=== PATIENT | female | born 1990 | race Caucasian/White ===

== ENCOUNTER → 2017-06-28 19:25 | Observation (INO) ==
--- NOTE | 2017-06-28 17:49 | Discharge Summary ---
Date of Encounter: 06/28/17 Time of Encounter: 17:49 - Discharge Diagnosis (1) Vaginal discharge during Priority: Primary Status: Acute Comments: Edit: NST reactive, Vaginosis panel BV Sent home with metrogel. Follow up in office with routine care and PRN. Discharge home with labor precautions. Ms Stein at 34 w 4 d arrives to triage with c/o leakage onto her underwear after urinating this evening. She denies cramping, contractions, vaginal bleeding, change in discharge, intercourse in the past 48 hours, headaches, vision changes, and epigastric pain. She states positive movement. She delivered her last child at 37 w 4 days with spontaneous labor. Pooling negative and Nitrazine negative Urine pending NST pending Vaginosis panel pending Anticipate discharge home with labor precautions. Follow up in office with routine care and PRN Qualifiers: Trimester: third trimester Qualified Code(s): O26.893 - Other specified related conditions, third trimester; N89.8 - Other specified noninflammatory disorders of vagina (2) 34 weeks gestation of Priority: Secondary Status: Acute - Discharge Medications Prescriptions: MetroNIDAZOLE [Metrogel-Vaginal] 5 gm VG HS 5 Days gel.w.appl Home Medications: Aspirin [Lo-Dose Aspirin EC] 81 mg PO DAILY 06/28/17 [History] MetroNIDAZOLE [Metrogel-Vaginal] 5 gm VG HS 5 Days gel.w.appl 06/28/17 [Rx] Pnv Plus Multivit Tab 06/28/17 [History] Progesterone,Micronized [Progesterone] 200 mg PO DAILY 06/28/17 [History] Allergies/Adverse Reactions: 3 Allergy/AdvReac Type Severity Reaction Status Date / Time No Known Allergies Allergy Verified 07/08/16 17:54 Date of admission: 06/28/17 17:19 Primary care physician: PCP NONE Discharging clinician: Meera Yusuf Anticipated date of discharge: 06/28/17 - Patient Status Disposition: Home, Self-Care Condition: Good Functional capacity at discharge: independent ambulation Overall status at discharge: patient is back to baseline - Discharge Instructions Follow Up With: NONE,PCP [Primary Care Provider] - Douglas Souza MD [Partnered Physician] - Additional Instructions: LABOR AND DELIVERY DISCHARGE INSTRUCTIONS Signs and Symptoms to be Reported to your Doctor Immediately: * Sudden gush, continuous or intermittent lead of fluid from vagina (note the time of gush and color of fluid) * Onset of bright red vaginal bleeding with or without pain (if you had a vaginal exam during this visit you may notice some dark red spotting. This is normal.) * Lower abdominal cramping or backache that is premenstrual-like feeling. * More than 6 contractions in one hour. * Burning during urination, having to urinate more frequently or pain in your mid-back. * A change in the baby's activity. This could be an increase or decrease in activity. * Severe headache which does not go away with tylenol. * Sudden swelling in the face, hands, arms and/or legs. * Upper abdominal pain - sometimes associated with heartburn or nausea and is not relieved by Maalox, Mylanta or Tums. * Dizziness or blurred vision or visual disturbances (seeing stars/lights). * Kick Counts One hour after a meal, lay down on one side in a quiet place. Count the number of keith the baby moves during an hour. If less than 6 movements, notify your physician. Diet: *Force fluids - 8-10 tall glasses of fluid per day. May include popsicles and jello. 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 SSE - mild white mucous discharge SVE - FT thick high anterior - Extremities Exam Extremities exam IM: Present: normal capillary refill, normal inspection, radial pulses palpable and symmetrical - Neurological Exam Neurological exam: alert, oriented X3 - VTE Reasons for not Prescribing Prophylaxis: Treatment not Indicated - Low risk for VTE
[2017-06-28 18:01] LABS: Bilirubin,Urine Negative (Negative); Blood,Urine Small (Negative); Clarity,Urine Cloudy (Clear); Color,Urine Yellow (Yellow); Glucose,Urine (UA) Normal (Normal); Ketones,Urine Negative (Negative); Leukocyte Esterase,Urine Small (Negative); Nitrite,Urine Negative (Negative); PH,Urine 6.5 pH Units (5.0-8.0); Protein,Urine Negative (Neg-Trace); Specific Gravity,Urine 1.018 (1.010-1.025); Urobilinogen,Urine Normal (Normal)
[2017-06-28 18:03] LABS: Bacteria,Urine None Seen per hpf (None-Few); Hyaline Casts,Urine None Seen per lpf (None-Few); RBC,Urine 0-3 per hpf (0-3); Squamous Epithelial Cell,Urine Many per lpf (None-Few)
[2017-06-28 18:06] LABS: Amphetamine Screen,Urine Negative ng/mL (Cutoff=1000); Barbiturate Screen,Urine Negative ng/mL (Cutoff=200); Benzodiazepines Screen,Urine Negative ng/mL (Cutoff=200); Cannabinoid Screen,Urine Negative ng/mL (Cutoff = 50); Cocaine Screen,Urine Negative ng/mL (Cutoff= 300); Opiate Screen,Urine Negative ng/mL (Cutoff=300); Phencyclidine Screen,Urine Negative ng/mL (Cutoff=25)
[2017-06-28 18:13] LABS: Amorphous Sediment,Urine Few (Few)
[2017-06-28 18:48] LABS: Candida DNA Not Detected (Not Detect); Gardnerella DNA ***DETECTED*** (Not Detect); Trichomonas DNA Not Detected (Not Detect)
== END | disposition home or self-care (01) ==
LOC: 1NENULAB
PROVIDERS: ADMIT Obstetrics & Gynecology; ATTEND Obstetrics & Gynecology

== ENCOUNTER → 2017-07-18 13:05 | Observation (INO) ==
[2017-07-18 11:12] LABS: Basophils # 0.1 K/mcL (0.0-0.2); Basophils % 0.6 %; Eosinophils # 0.2 K/mcL (0.0-0.6); Eosinophils % 2.1 %; Hematocrit 37.1 % (35.3-44.9); Hemoglobin 13.1 g/dL (11.5-15.4); Immature Granulocytes % 1.1 % (0-4); Lymphocytes # 2.1 K/mcL (0.6-4.6); Lymphocytes % 18.9 %; Mean Corpuscular HGB Conc 35.3 g/dL (31.6-35.5); Mean Corpuscular Hemoglobin 31.1 pg (28.0-33.3); Mean Corpuscular Volume 88.1 fL (83.0-100.0); Mean Platelet Volume 10.2 fL (9.4-12.4); Monocytes # 0.8 K/mcL (0.0-1.3); Monocytes % 7.2 %; Neutrophils # 7.7 K/mcL (1.6-8.9); Platelet Count 265 K/mcL (140-400); Red Blood Count 4.21 M/mcL (3.82-4.97); Red Cell Distribution Width 13.3 % (11.5-14.5); Segmented Neutrophils % 70.1 %
[2017-07-18 11:21] LABS: Amphetamine Screen,Urine Negative ng/mL (Cutoff=1000); Barbiturate Screen,Urine Negative ng/mL (Cutoff=200); Benzodiazepines Screen,Urine Negative ng/mL (Cutoff=200); Cannabinoid Screen,Urine Negative ng/mL (Cutoff = 50); Cocaine Screen,Urine Negative ng/mL (Cutoff= 300); Opiate Screen,Urine Negative ng/mL (Cutoff=300); Phencyclidine Screen,Urine Negative ng/mL (Cutoff=25)
--- NOTE | 2017-07-18 13:05 | Discharge Summary ---
Date of Encounter: 07/18/17 Time of Encounter: 13:05 - Discharge Diagnosis (1) 37 weeks gestation of Priority: Primary Status: Acute Comments: Admitted for evaluation and monitoring (2) Dizziness Priority: Secondary Status: Acute Comments: CBC drawn, WNL Vitals WNL - Discharge Medications Home Medications: Aspirin [Lo-Dose Aspirin EC] 81 mg PO DAILY 06/28/17 [History] Pnv Plus Multivit Tab 1 tab PO DAILY 06/28/17 [History] Allergies/Adverse Reactions: 3 Allergy/AdvReac Type Severity Reaction Status Date / Time No Known Allergies Allergy Verified 07/08/16 17:54 Data Procedures and tests throughout hospitalization: Laboratory Tests 07/18/17 07/18/17 07/18/17 11:00 11:00 11:00 WBC 10.9 RBC 4.21 Hgb 13.1 Hct 37.1 MCV 88.1 MCH 31.1 MCHC 35.3 RDW 13.3 Plt Count 265 MPV 10.2 Immature Gran % 1.1 Seg Neutrophils % 70.1 Lymphocytes % 18.9 Monocytes % 7.2 Eosinophils % 2.1 Basophils % 0.6 Neutrophils # 7.7 Lymphocytes # 2.1 Monocytes # 0.8 Eosinophils # 0.2 Basophils # 0.1 Glucose 104 H Urine Opiates Screen Negative Ur Barbiturates Screen Negative Ur Phencyclidine Scrn Negative Ur Amphetamines Screen Negative U Benzodiazepines Scrn Negative Urine Cocaine Screen Negative U Marijuana (THC) Screen Negative Labs on day of discharge: Labs from last 24 hours 07/18/17 07/18/17 07/18/17 11:00 11:00 11:00 WBC 10.9 RBC 4.21 Hgb 13.1 Hct 37.1 MCV 88.1 MCH 31.1 MCHC 35.3 RDW 13.3 Plt Count 265 MPV 10.2 Immature Gran % 1.1 Seg Neutrophils % 70.1 Lymphocytes % 18.9 Monocytes % 7.2 Eosinophils % 2.1 Basophils % 0.6 Neutrophils # 7.7 Lymphocytes # 2.1 Monocytes # 0.8 Eosinophils # 0.2 Basophils # 0.1 Glucose 104 H Urine Opiates Screen Negative Ur Barbiturates Screen Negative Ur Phencyclidine Scrn Negative Ur Amphetamines Screen Negative U Benzodiazepines Scrn Negative Urine Cocaine Screen Negative U Marijuana (THC) Screen Negative Date of admission: 07/18/17 10:40 Primary care physician: Gordon Villalobos Discharging clinician: Martha Colbert Anticipated date of discharge: 07/18/17 - Patient Status Disposition: Home, Self-Care Condition: Good Functional capacity at discharge: independent ambulation - Discharge Instructions Follow Up With: Gordon Villalobos DO [Primary Care Provider] - Douglas Souza MD [Partnered Physician] - - Diet and Activity Activity: resume usual activities as tolerated Diet: regular diet 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 Attestation: Total time spent providing and/or coordinating discharge services: Time Spent: Less than 30 minutes Exam - Constitutional General appearance IM: A&O X 3, pleasant, no acute distress, answers questions appropriately - Respiratory Respiratory exam: Present: CTAB - Cardiovascular Cardiovascular exam IM: Present: RRR, +S1, +S2 - GI/Abdominal GI/Abdominal exam IM: normal bowel sounds, soft - Rectal Rectal exam: deferred - Extremities Exam Extremities exam IM: Present: full ROM, normal capillary refill, normal inspection - Neurological Exam Neurological exam: alert, normal gait, oriented X3 - Other Additional findings: 145 bpm, moderate variability, +15x15 accels, no decels. Category I tracing. Rare contractions - VTE Reasons for not Prescribing Prophylaxis: Treatment not Indicated - Low risk for VTE
== END | disposition home or self-care (01) ==
LOC: 1NENULAB
PROVIDERS: ADMIT Obstetrics & Gynecology; ATTEND Obstetrics & Gynecology